=== PATIENT | female | born 1985 | race Caucasian/White ===

== ENCOUNTER 2021-10-02 09:45 | Outpatient (CLI) | payer BC, SELFPAY ==
[2021-10-02 11:44] LABS: Hepatitis B Surface Antigen* Negative (Negative)
[2021-10-02 11:54] LABS: HIV 1/2/P24 Combo Screen* Negative (Negative)
[2021-10-02 12:01] LABS: Hepatitis C Virus Antibody* Negative (Negative)
[2021-10-02 12:30] LABS: Lab Add On Test New Spec Needed
[2021-10-03 18:14] LABS: Rubella Antibody IgG 36.5 IU/mL
[2021-10-04 04:08] LABS: Rapid Plasma Reagin (RPR) Non Reactive (Non Reactive)
== END 2021-10-02 09:46 | disposition home or self-care (01) ==
PROVIDERS: Visit Provider Physician Assistant
DX: Z34.81 Encounter for supervision of other normal pregnancy, first trimester (principal); Z86.32 Personal history of gestational diabetes
CPT/HCPCS: 76817; 86592; 86703; 86762; 86803; 86850; 86900; 86901; 87086; 87340; 87491; 87591

== ENCOUNTER 2021-12-24 13:27 | Outpatient (CLI) | payer BC, SELFPAY | END 2021-12-24 13:28 | disposition home or self-care (01) | LOC: US 13:28 | PROVIDERS: Visit Provider Pediatrics Neonatal-Perinatal Medicine | DX: O09.522 Supervision of elderly multigravida, second trimester (principal); Z3A.21 21 weeks gestation of pregnancy | CPT/HCPCS: 76811; 76817 ==